=== PATIENT | male | born 1995 | race Caucasian/White ===

== ENCOUNTER 2018-12-20 05:56 | Inpatient (IN) | payer MEDICAID ==
[~2018-12-20] VITALS: Ht 172.7 cm; Wt 138.3 kg
[2018-12-20] MEDS ORDERED: LACTATED RINGERS 1,000 ML IV SCH (06:00)
[2018-12-20] MEDS ORDERED: MORPHINE SULFATE/PF 1MG/ML 10ML AMP ONE (06:58)
[2018-12-20] MEDS ORDERED: BUPIVACAINE/EPINEPH/PF 0.25%/0.0005 10ML ONE (06:58)
[2018-12-20] MEDS ORDERED: EPINEPHRINE 1:1000 1 MG/ML AMP ONE (06:59)
[2018-12-20] MEDS ORDERED: ROPIVACAINE HCL 10MG/ML 20 ML VIAL EPI ONE (07:40)
[2018-12-20] MEDS ORDERED: BUPIVACAINE HCL/DEXTROSE/PF 0.75% 2ML AMP INJ ONE (07:40)
[2018-12-20] MEDS ORDERED: BACITRACIN 50,000 UNITS/VIAL ONE (10:13)
[2018-12-20] MEDS ORDERED: SODIUM CHLORIDE 0.9% 1,000 ML IV ONE (13:17)
[2018-12-20] MEDS ORDERED: ONDANSETRON HCL 4MG/2ML INJ IV PRN ×2 (13:30)
[2018-12-20] MEDS ORDERED: ACETAMINOPHEN 325MG TABLET PO PRN (13:30)
[2018-12-20] MEDS ORDERED: MEPERIDINE HCL/PF 25MG/ML CPJ IV PRN ×2 (13:30)
[2018-12-20] MEDS ORDERED: MAGNESIUM HYDROXIDE 400MG/5ML 30ML UDC PO PRN (13:30)
[2018-12-20] MEDS ORDERED: HYDROMORPHONE HCL/PF 2MG/ML CPJ IV PRN (13:30)
[2018-12-20] MEDS ORDERED: HYDROCODONE/ACETAMINOPHEN 10/325MG TABLET PO PRN ×2 (13:30)
[2018-12-20] MEDS ORDERED: ZOLPIDEM TARTRATE 5MG TABLET PO PRN (13:30)
[2018-12-20] MEDS ORDERED: MORPHINE SULFATE 2 MG/ML CPJ (NOT FOR IM USE) IV PRN (13:30)
[2018-12-20] MEDS ORDERED: NALOXONE INJ IV PRN (13:45)
[2018-12-20] MEDS ORDERED: HYDROMORPHONE PCA 10MG/50ML IV PRN (13:45)
[2018-12-20] MEDS ORDERED: ONDANSETRON INJ IV PRN (13:45)
[2018-12-20] MEDS ORDERED: DIPHENHYDRAMINE INJ IV PRN (13:45)
[2018-12-20 15:30] VITALS: BP 140/73
[2018-12-20 16:00] VITALS: BP 140/73
[2018-12-20] MEDS: CELECOXIB 200MG CAPSULE PO SCH (17:53)
[2018-12-20] MEDS: DOCUSATE SODIUM 100MG CAPSULE PO SCH (17:53)
[2018-12-20] MEDS: CEFAZOLIN 2,000 MG in DEXT 5% WATER 100 ML IV SCH (19:58)
[2018-12-20 20:00] VITALS: BP 110/71
[2018-12-21] VITALS: BP 118/68
[2018-12-21] MEDS: CEFAZOLIN 2,000 MG in DEXT 5% WATER 100 ML IV SCH (03:08)
[2018-12-21 04:00] VITALS: BP 115/61
[2018-12-21 08:00] VITALS: BP 110/59
[2018-12-21] MEDS: CELECOXIB 200MG CAPSULE PO SCH (09:04)
[2018-12-21] MEDS: DOCUSATE SODIUM 100MG CAPSULE PO SCH (09:04)
[2018-12-21 12:00] VITALS: BP 130/78
[2018-12-21 13:02] VITALS: BP 130/78
[2018-12-21 13:46] VITALS: BP 130/78
== END 2018-12-21 14:10 | disposition home or self-care (01) | DRG 313 ==
LOC: OR 05:56 → 6EST 05:57
PROVIDERS: ADMIT Orthopaedic Surgery; ATTEND Orthopaedic Surgery
PROC: 0MRP47Z Replacement of Left Knee Bursa and Ligament with Autologous Tissue Substitute, Percutaneous Endoscopic Approach (ICD-10-PCS; principal; 2018-12-20)
PROC: 0LBR0ZZ Excision of Left Knee Tendon, Open Approach (ICD-10-PCS; 2018-12-20)
DX: S83.282A Other tear of lateral meniscus, current injury, left knee, initial encounter (principal); M12.50 Traumatic arthropathy, unspecified site; E66.9 Obesity, unspecified; S80.02XA Contusion of left knee, initial encounter; S83.512A Sprain of anterior cruciate ligament of left knee, initial encounter; S83.429A Sprain of lateral collateral ligament of unspecified knee, initial encounter; S83.419A Sprain of medial collateral ligament of unspecified knee, initial encounter; X50.1XXA Overexertion from prolonged static or awkward postures, initial encounter; Y93.66 Activity, soccer; Y92.89 Other specified places as the place of occurrence of the external cause; Y99.8 Other external cause status; Z68.42 Body mass index [BMI] 45.0-49.9, adult; Z79.899 Other long term (current) drug therapy
CPT/HCPCS: 73560; 88304; 88311; 97116; 97162; J0171; J0690; J1170; J2274; J2795; J3490; J7060